=== PATIENT | female | born 1990 | race Caucasian/White ===

== ENCOUNTER 2020-01-29 14:01 | Inpatient (IN) | payer OTHER ==
--- NOTE | 2020-01-30 14:10 | PR ---
[facility] [address] [facility] [place] [address] Signed PP Progress Notes Datetime Report Generated by N: 01/30/2020 14:10 SUBJECTIVE: [id number] Pain: Within normal limits Nausea/Vomiting: Denies Vital Signs: [id number] Vital Signs: Reviewed; Within Normal Limits EXAM: [id number] Abdomen/Uterus: Normal Lochia: Normal Extremities: Normal IMPRESSION/PLAN/PROCEDURES: [id number] Impression: Normal progression Plan: Discharge Procedures: None Progress Notes: Doing well, without complaint. Ready to go home. Signing Physician: Humaira Bartholomew MD Copies: ~ *Electronically Signed* 01/30/20 1410 HUMAIRA BARTHOLOMEW MD PATIENT NAME: CA BAXTER PROGRESS NOTE DATE OF : 90 PHYSICIAN: HUMAIRA BARTHOLOMEW MD RPT #: [id number] REPORT IS CONFIDENTIAL AND NOT TO BE RELEASED WITHOUT AUTHORIZATION
== END 2020-01-30 15:05 | disposition home or self-care (01) | DRG 805 ==
LOC: FBCO 14:01 → FBC 15:33
PROVIDERS: ADMIT General Practice
PROC: 10E0XZZ Delivery of Products of Conception, External Approach (ICD-10-PCS; principal; 2020-01-30)
PROC: 3E0P7VZ Introduction of Hormone into Female Reproductive, Via Natural or Artificial Opening (ICD-10-PCS; 2020-01-30)
PROC: 00HU33Z Insertion of Infusion Device into Spinal Canal, Percutaneous Approach (ICD-10-PCS; 2020-01-30)
PROC: 3E0R3BZ Introduction of Anesthetic Agent into Spinal Canal, Percutaneous Approach (ICD-10-PCS; 2020-01-30)
DX: O36.4XX0 Maternal care for intrauterine death, not applicable or unspecified (principal); O60.13X0 Preterm labor second trimester with preterm delivery third trimester, not applicable or unspecified; Z37.1 Single stillbirth; Z3A.32 32 weeks gestation of pregnancy; O99.344 Other mental disorders complicating childbirth; F41.8 Other specified anxiety disorders; O69.89X0 Labor and delivery complicated by other cord complications, not applicable or unspecified; Z87.440 Personal history of urinary (tract) infections
CPT/HCPCS: 76815; 82565; 82570; 84156; 84450; 84520; 84550; 85025; 86850; 86900; 86901; 99213; J2590; J2795; J7121

== ENCOUNTER 2020-12-16 07:55 | Inpatient (IN) | payer OTHER ==
[~2020-12-16] VITALS: Ht 167.6 cm; Wt 96.2 kg
--- NOTE | 2020-12-16 10:59 | PR ---
[facility] [address] [facility] [place] [address] Signed Progress Notes IP Datetime Report Generated by CPN: 12/16/2020 10:59 PROGRESS NOTES: [id number] Impression: Normal Progression of Labor Procedures: Artificial ROM Plan: Continue Present Management VITAL SIGNS: [id number] Vital Signs: Reviewed; Within Normal Limits EXAM: [id number] Dilatation: 6.0 Effacement: 80 Station: -3 MEMBRANES: [id number] Membranes Status: Ruptured Comments: Comfortable with Epidural. FETUS A: [id number] FHR Baseline: 130 Variability: Moderate 6-25bpm Accelerations: 15X15 Presentation: Vertex FETUS B: [id number] Signing Physician: Humaira Bartholomew MD Copies: ~ *Electronically Signed* 12/16/20 1059 HUMAIRA BARTHOLOMEW MD PATIENT NAME: CA BAXTER PROGRESS NOTE DATE OF : 90 PHYSICIAN: HUMAIRA BARTHOLOMEW MD RPT #: [id number] REPORT IS CONFIDENTIAL AND NOT TO BE RELEASED WITHOUT AUTHORIZATION
--- NOTE | 2020-12-16 12:44 | PR ---
[facility] [address] [facility] [place], [place] [address] Signed Progress Notes IP Datetime Report Generated by CPN: 12/16/2020 12:44 PROGRESS NOTES: [id number] Impression: Normal Progression of Labor Procedures: Artificial ROM Plan: Continue Present Management; Anticipate Vaginal Delivery VITAL SIGNS: [id number] Vital Signs: Reviewed; Within Normal Limits EXAM: [id number] Dilatation: 10.0 Effacement: 100 Station: -1 MEMBRANES: [id number] Membranes Status: Ruptured Comments: Comfortable with Epidural, bkut still slightly high, possibly ROP. Will try laboring on side for short time, then try pushing. FETUS A: [id number] FHR Baseline: 130 Variability: Moderate 6-25bpm Accelerations: 15X15 Presentation: Vertex FETUS B: [id number] Signing Physician: Humaira Bartholomew MD Copies: ~ *Electronically Signed* 12/16/20 1244 HUMAIRA BARTHOLOMEW MD PATIENT NAME: CA BAXTER PROGRESS NOTE DATE OF : 90 PHYSICIAN: HUMAIRA BARTHOLOMEW MD RPT #: [id number] REPORT IS CONFIDENTIAL AND NOT TO BE RELEASED WITHOUT AUTHORIZATION
--- NOTE | 2020-12-16 13:00 | PR ---
[facility] [address] [facility] [place], [place] [address] Signed Progress Notes IP Datetime Report Generated by CPN: 12/16/2020 13:00 PROGRESS NOTES: [id number] Impression: Normal Progression of Labor Procedures: Artificial ROM Plan: Continue Present Management; Anticipate Vaginal Delivery VITAL SIGNS: [id number] Vital Signs: Reviewed; Within Normal Limits EXAM: [id number] Dilatation: 10.0 Effacement: 100 Station: 0 MEMBRANES: [id number] Membranes Status: Ruptured Comments: Fetus coming down, now in correct position. Patient comfortable, pulshing well. FETUS A: [id number] FHR Baseline: 130 Variability: Moderate 6-25bpm Accelerations: 15X15 Presentation: Vertex FETUS B: [id number] Signing Physician: Humaira Bartholomew MD Copies: ~ *Electronically Signed* 12/16/20 1300 HUMAIRA BARTHOLOMEW MD PATIENT NAME: CA BAXTER PROGRESS NOTE DATE OF : 90 PHYSICIAN: HUMAIRA BARTHOLOMEW MD RPT #: [id number] REPORT IS CONFIDENTIAL AND NOT TO BE RELEASED WITHOUT AUTHORIZATION
--- NOTE | 2020-12-16 14:40 | PR ---
[facility] [address] [place], [place] [address] Signed Progress Notes IP Datetime Report Generated by CPN: 12/16/2020 14:40 PROGRESS NOTES: [id number] Impression: Normal Progression of Labor; Non-reassuring Heart Rate Procedures: Artificial ROM Plan: Continue Present Management; Anticipate Vaginal Delivery Informed Consent Obtain: Section Delivery; Risks, Benefits and Alternatives Discussed VITAL SIGNS: H7461677 Vital Signs: Reviewed; Within Normal Limits EXAM: [id number] Dilatation: 10.0 Effacement: 100 Station: 0 MEMBRANES: [id number] Membranes Status: Ruptured Comments: Pushing well, but head with minimal movement and FHR down to 800's-90's for >10 minutes. Do not believe will be able to deliver baby vaginally with non-reassuring FHR tracing for that long, without compromise. Discussed with patient. Explained "Code 4" C/S, risks, benefits. Verbal consent given, patient taken immediately back to OR for Emergency C/S. FETUS A: [id number] FHR Baseline: 130 Variability: Moderate 6-25bpm Accelerations: 15X15 Presentation: Vertex FETUS B: [id number] Signing Physician: Humaira Bartholomew MD Copies: ~ *Electronically Signed* 12/16/20 1441 HUMAIRA BARTHOLOMEW MD PATIENT NAME: CA BAXTER PROGRESS NOTE DATE OF : 90 PHYSICIAN: HUMAIRA BARTHOLOMEW MD RPT #: [id number] REPORT IS CONFIDENTIAL AND NOT TO BE RELEASED WITHOUT AUTHORIZATION
--- NOTE | 2020-12-16 14:42 | NUR ---
12/16/20 Darlyn2 Larisa Sim 1432-PATIENT ARRIVED TO PACU ON RA DROWSY ANSWERING QUESTIONS. EYES OPEN ORIENTED TO PACU. REPORTS PAIN 3/10 LAYING ON RIGHT SIDE PATIENT REPOSITIONED TO BACK TO CHECK FUNDUS WITH RNS ASSISTANCE. 1 ABOVE UMBILICUS LIGHT RUBRA DRAINAGE ON MIGUEL PAD. DRESSING ON ABDOMEN [facility], 1438-WHIT LOCOMOTIVE BOILERMAKER GIVING IV TYLENOL PATIENT HAS EYES CLOSED. PATIENT ASKING ABOUT BABY BOY. 1441-MOHIT LOCOMOTIVE BOILERMAKER AT BEDSIDE REMOVING EPIDURAL
--- NOTE | 2020-12-17 12:22 | OR ---
[facility] [address] [place], [place] [address] Signed DATE OF OPERATION: 12/16/2020 SURGEON: Zay Mustafa MD Patient of Dr. Mustafa. PREOPERATIVE DIAGNOSIS: bradycardia and term labor. POSTOPERATIVE DIAGNOSIS: bradycardia and term labor. PROCEDURE: Emergency primary low transverse segment section, delivery of live male . HEALTH AND SAFETY SPECIALIST: Dr. Clemens. ANESTHESIA: General. ESTIMATED BLOOD LOSS: 1000 mL. COMPLICATIONS: None. DRAINS: Morris to bladder. FINDINGS: Live male infant, Apgars 8 and 9, weight 8 pounds 11 ounces. head wedged tightly in pelvis, with nuchal cord x1. Normal uterus. Normal tubes and ovaries bilateral. DESCRIPTION OF PROCEDURE: The patient was brought into the operating room, placed supine position. After adequate general anesthesia was obtained, she was prepped and draped in usual sterile fashion, and the patient was immediately given general anesthesia with the surgery commencing soon as the patient was anesthetized. A Pfannenstiel skin incision was made with a scalpel. Subcutaneous tissue was dissected with a scalpel and finger dissection and the Electronically Signed By: ZAY MUSTAFA MD 12/17/20 1222 PATIENT NAME: CA BAXTER OPERATIVE REPORT DATE OF : 90 REPORT #: [id number] PHYSICIAN: ZAY MUSTAFA MD PCP: YUSRA RAJAN MD REPORT IS CONFIDENTIAL AND NOT TO BE RELEASED WITHOUT AUTHORIZATION [facility] [address] [place], [place] [address] Signed fascia nicked with the scalpel and extended in transverse fashion using curved scissors. The underlying abdominal musculature was bluntly sharply from the fascia above and below the incision. The abdominal musculature was bluntly along the midline. The peritoneum was grasped with hemostats, elevated, nicked with scissors and then opening extended with finger dissection. The Juan Antonio self-retaining retractor was inserted into the incision and tightened in place. The lower uterine segment was nicked with scalpel and extended transverse fashion using finger dissection. The infant was noted to be in the vertex NELSY presentation with the head wedged tightly in the pelvis. The head was removed and the head delivered from the incision. The cord was noted to be around the neck once, this was removed. The rest of the infant was then easily delivered from the incision. Cord was doubly clamped and cut. The infant passed off the table in good condition awaiting plasticator. Cord gases were collected and sent. The placenta was then manually removed. Uterine cavity explored with lap pad, removed any retained membranes. The incision was noted to have extensions on both sides lateral and caudally. T clamps were used to identify and irvin the end of the extensions and also the ends of the regular incision. The two extensions were each closed with a running locking stitches of 0 Monocryl starting at the lower angle with a finger behind the broad ligament, taking care to avoid any major vessels and to avoid catching any bowel or pelvic structures behind the broad ligament. This was closed up to the original angle on each side. The incision was then closed using running locking stitch of 0 Monocryl and 2nd running stitch of 0 Monocryl was used to imbricate the 1st layer. There was small bleeding on the right angle, this was controlled with ddyumv-xi-oialz stitch of 0 Monocryl, again with finger behind the broad ligament to identify position. The entire pelvis was irrigated, suctioned and examined and noted to have good hemostasis, but there was a broad opening in the anterior peritoneum because of the extension. So after irrigation, the Juan Antonio retractor was removed. Tisseel was sprayed all along the incision to help with further hemostasis and then the bladder flap carefully closed with 3-0 Vicryl in a running stitch. Good hemostasis was noted, so sheet of ACell placed over the lower uterine segment to help with healing and then the anterior wall peritoneum closed using running stitch of 2-0 Vicryl suture. The abdominal musculature was reapproximated using interrupted stitches of 0 Vicryl suture. The abdominal wall incision was irrigated, suctioned, and examined, and any bleeding spots cauterized with the Bovie. Powdered ACell sprinkled over the abdominal musculature and the fascia closed using two running stitch of 0 Vicryl suture meeting in the midline. Subcutaneous tissue was irrigated, suctioned, and examined, and any bleeding spots cauterized with the Bovie. The subcutaneous tissue was irrigated, suctioned, and examined, and any bleeding spots cauterized with Bovie and then closed with interrupted stitches of 3-0 Vicryl suture. The skin was reapproximated using skin clips. The patient tolerated the procedure well, went to recovery room in good condition. Sponge, needle, and instrument count were correct at the end of the procedure. Cord blood gases were sent to the lab. Electronically Signed By: ZAY MUSTAFA MD 12/17/20 1222 PATIENT NAME: CA BAXTER OPERATIVE REPORT DATE OF : 90 REPORT #: [id number] PHYSICIAN: ZAY MUSTAFA MD PCP: YUSRA RAJAN MD REPORT IS CONFIDENTIAL AND NOT TO BE RELEASED WITHOUT AUTHORIZATION [address] [place], [place] [address] Signed MD TRAVON Milligan/ADIEL /[id number] Copies: ~ Electronically Signed By: ZAY MUSTAFA MD 12/17/20 1222 PATIENT NAME: CA BAXTER OPERATIVE REPORT DATE OF : 90 REPORT #: [id number] PHYSICIAN: ZAY MUSTAFA MD PCP: YUSRA RAJAN MD REPORT IS CONFIDENTIAL AND NOT TO BE RELEASED WITHOUT AUTHORIZATION
--- NOTE | 2020-12-17 12:38 | PR ---
[facility] [address] [place] [address] Signed PP Progress Notes Datetime Report Generated by CPN: 12/17/2020 12:38 SUBJECTIVE: [id number] Pain: Within Normal Limits Nausea/Vomiting: Denies Vital Signs: [id number] Vital Signs: Reviewed; Within Normal Limits Notable Details: PP Hgb/Hct = 9.0/27.5 Abdomen/Uterus: Normal Lochia: Normal Extremities: Normal Incision: Normal IMPRESSION/PLAN/PROCEDURES: [id number] Impression: Normal Progression Other Impression: PP Anemia Plan: Discharge Procedures: None Progress Notes: Doing well, without complaint, sitting up in chair without difficulty. Signing Physician: Humaira Bartholomew MD Copies: ~ *Electronically Signed* 12/17/20 1238 HUMAIRA BARTHOLOMEW MD PATIENT NAME: CA BAXTER PROGRESS NOTE DATE OF : 90 PHYSICIAN: HUMAIRA BARTHOLOMEW MD RPT #: [id number] REPORT IS CONFIDENTIAL AND NOT TO BE RELEASED WITHOUT AUTHORIZATION
--- NOTE | 2020-12-18 12:07 | PR ---
[facility] [address] [place] [address] Signed PP Progress Notes Datetime Report Generated by CPN: 12/18/2020 12:07 SUBJECTIVE: [id number] Pain: Within Normal Limits Nausea/Vomiting: Denies Vital Signs: [id number] Vital Signs: Reviewed; Within Normal Limits Notable Details: PP Hgb/Hct = 9.0/27.5 Abdomen/Uterus: Normal Lochia: Normal Extremities: Normal Incision: Normal IMPRESSION/PLAN/PROCEDURES: [id number] Impression: Normal Progression Other Impression: PP Anemia Plan: Discharge Procedures: None Progress Notes: Doing well, ready to go home. Signing Physician: Humaira Bartholomew MD Copies: ~ *Electronically Signed* 12/18/20 1207 HUMAIRA BARTHOLOMEW MD PATIENT NAME: CA BAXTER PROGRESS NOTE DATE OF : 90 PHYSICIAN: HUMAIRA BARTHOLOMEW MD RPT #: [id number] REPORT IS CONFIDENTIAL AND NOT TO BE RELEASED WITHOUT AUTHORIZATION
== END 2020-12-18 14:09 | disposition home or self-care (01) | DRG 788 ==
LOC: FBCO 07:55 → FBC 08:50
PROVIDERS: ADMIT General Practice; ATTEND General Practice
PROC: 10907ZC Drainage of Amniotic Fluid, Therapeutic from Products of Conception, Via Natural or Artificial Opening (ICD-10-PCS; 2020-12-16)
PROC: 00HU33Z Insertion of Infusion Device into Spinal Canal, Percutaneous Approach (ICD-10-PCS; 2020-12-16)
PROC: 3E0R3BZ Introduction of Anesthetic Agent into Spinal Canal, Percutaneous Approach (ICD-10-PCS; 2020-12-16)
PROC: 10D00Z1 Extraction of Products of Conception, Low, Open Approach (ICD-10-PCS; principal; 2020-12-16 13:29)
DX: O24.424 Gestational diabetes mellitus in childbirth, insulin controlled (principal); Z3A.39 39 weeks gestation of pregnancy; Z37.0 Single live birth; O76 Abnormality in fetal heart rate and rhythm complicating labor and delivery; O69.81X0 Labor and delivery complicated by cord around neck, without compression, not applicable or unspecified; O77.0 Labor and delivery complicated by meconium in amniotic fluid; O99.02 Anemia complicating childbirth; D64.9 Anemia, unspecified; O99.344 Other mental disorders complicating childbirth; F41.9 Anxiety disorder, unspecified; F32.9 Major depressive disorder, single episode, unspecified; Z79.899 Other long term (current) drug therapy
CPT/HCPCS: 01961; 36415; 59025; 82803; 85027; 86850; 86900; 86901; 99213; A9270; J0131; J0330; J0690; J1100; J2274; J2370; J2405; J2590; J2704; J2795; J3010; J7042; J7121

== ENCOUNTER 2023-01-18 07:05 | Day surgery (SDC) | payer OTHER ==
--- NOTE | ~2023-01-18 | OR ---
[facility] [place] [facility] [address] [place], [place] [address] Draft DATE OF OPERATION: 01/18/2023 SURGEON: Zay Mustafa MD The patient of Dr. Mustafa. PREOPERATIVE DIAGNOSIS: Missed . POSTOPERATIVE DIAGNOSIS: Missed . PROCEDURE: Suction D and C. ANESTHESIA: General. ESTIMATED BLOOD LOSS: 600 mL. SPECIMEN: Products of conception. DRAINS: None. FINDINGS: Vagina, no blood. Cervix, soft, thick, closed. No active bleeding. Uterus 9 week size, soft, anterior, mobile. Adnexa, no masses palpable. A large amount of tissue removed from the uterine cavity. COMPLICATIONS: None. DESCRIPTION OF PROCEDURE: The patient was brought to the operating room, placed in the supine position. After adequate general anesthesia was obtained, she was placed in dorsal lithotomy position, prepped and draped in usual sterile fashion. Bladder was emptied with straight catheterization. A weighted speculum was placed in the vagina and the anterior lip of PATIENT NAME: CA BAXTER OPERATIVE REPORT DATE OF : 90 REPORT #: [id number] PHYSICIAN: ZAY MUSTAFA MD PCP: ZULEYMA ARGUETA MD REPORT IS CONFIDENTIAL AND NOT TO BE RELEASED WITHOUT AUTHORIZATION [facility] [place] [facility] [address] [place], [place] [address] Draft the cervix was grasped with an Allis clamp. Uterine cavity was sounded to 13 cm and then the cervix was serially dilated. 20 units of Pitocin was put in the IV bag to help with uterine contraction during the procedure. After dilating the cervix, a #10 curved suction tip curette was carefully introduced through the cervix to the fundus and scraped in 360 degree fashion as it was removed during suction. Prior to starting the suction machine was started and tested and the amount of suction adjusted to the normal range and moderate amount of tissue was removed. The curette was then again carefully inserted and again scraped in 360 degree fashion removing more tissue, throughout this there was moderate bleeding. The procedure was continued and small amount of tissue was removed several times after this, so the procedure was continued until the uterus became more firm and no additional tissue was removed and the uterus palpated and noted to be much more firm and normal size. The cervix was observed and again good hemostasis was obtained at this time, so the procedure was stopped. All instruments were removed from the vagina. The patient tolerated the procedure well, went to recovery room in good condition. Sponge and instrument count were correct at the end of the procedure. The uterine curettings were sent to Pathology for identification. MD TRAVON Milligan/ADIEL /[id number] cc: Zuleyma Argueta MD Copies: ~ PATIENT NAME: CA BAXTER OPERATIVE REPORT DATE OF : 90 REPORT #: [id number] PHYSICIAN: ZAY MUSTAFA MD PCP: ZULEYMA ARGUETA MD REPORT IS CONFIDENTIAL AND NOT TO BE RELEASED WITHOUT AUTHORIZATION
[2023-01-18] MEDS ORDERED: VITAMIN D325 MC4 PO (07:23)
[2023-01-18] MEDS ORDERED: PRENATAL VITAM1 EACH PO (07:23)
== END 2023-01-18 10:40 | disposition home or self-care (01) ==
LOC: DS 07:05 → OPS 07:05 → DS 08:45 → OPS 08:45
PROVIDERS: ATTEND General Practice
PROC: 10D17ZZ Extraction of Products of Conception, Retained, Via Natural or Artificial Opening (ICD-10-PCS; principal; 2023-01-18 08:45)
DX: O02.1 Missed abortion (principal)
CPT/HCPCS: J1100; J1885; J2250; J2405; J2590; J2704; J2765; J3010; J7121

== ENCOUNTER 2024-04-23 10:40 | Inpatient (IN) | payer OTHER ==
[~2024-04-23] VITALS: Ht 167.6 cm; Wt 85.7 kg
[~2024-04-23 10:40] MED LIST: PRENATAL VITAM1 EACH PO; VITAMIN D325 MC4 PO
[2024-04-30] MEDS ORDERED: LACTATED RINGER'S 2,000 ML IV PRN (05:00)
[2024-04-30] MEDS ORDERED: LACTATED RINGER'S 1,000 ML IV SCH ×2 (05:00→08:29)
[2024-04-30] MEDS ORDERED: LIDOCAINE 2% VISCOUS 6 ML SYR TOP ONE ×2 (05:30→08:30)
[2024-04-30 06:06] LABS: AMPHETAMINES, URINE NEGATIVE (NEGATIVE); BARBITURATES, URINE NEGATIVE (NEGATIVE); BENZODIAZEPINE, URINE NEGATIVE (NEGATIVE); BUPRENORPHINE, URINE NEGATIVE (NEGATIVE); CANNABINOID, URINE NEGATIVE (NEGATIVE); COCAINE, URINE NEGATIVE (NEGATIVE); ECSTASY, URINE NEGATIVE (NEGATIVE); FENTANYL, URINE NEGATIVE (NEGATIVE); METHADONE, URINE NEGATIVE (NEGATIVE); OPIATES, URINE NEGATIVE (NEGATIVE); OXYCODONE, URINE NEGATIVE (NEGATIVE); PHENCYCLIDINE, URINE NEGATIVE (NEGATIVE)
[2024-04-30 06:32] LABS: HEMATOCRIT 34.5 % (35.0-50.0); HEMOGLOBIN 11.8 g/dL (12.0-18.0); MCH 31.9 (27-36); MCV 93.6 fl (81-99); RBC 3.69 M/ul (4.3-5.7); RDW 14.2 (10.5-15.0)
[2024-04-30] MEDS ORDERED: fentaNYL citrate 100 MCG/2 ML VIAL ONE (06:53)
[2024-04-30] MEDS ORDERED: ePHEDrine sulfate 50 MG/ML AMP ONE (06:53)
[2024-04-30] MEDS ORDERED: PHENYLEPHRINE HCL 10 MG/ML VIAL ONE (06:53)
[2024-04-30] MEDS ORDERED: OXYTOCIN 10 UNITS/ML VIAL ONE (06:53)
[2024-04-30] MEDS ORDERED: MORPHINE SULFATE 1 MG/ML VIAL ONE (06:53)
[2024-04-30] MEDS ORDERED: BUPIVACAINE 0.75% IN DEXTROSE 2 ML AMP ONE (06:53)
[2024-04-30] MEDS ORDERED: DEXAMETHASONE SOD PHOS 4 MG/ML VIAL ONE ×2 (06:53→07:41)
[2024-04-30] MEDS ORDERED: SODIUM CHLORIDE 0.9% 20 ML IV ONE (06:53)
[2024-04-30] MEDS ORDERED: ondansetron HCL 4 MG/2 ML VIAL ONE (06:53)
[2024-04-30] MEDS ORDERED: SOD+POT BICARB/CITRIC ACID 2 EA TABLET.EFF PO SCH (07:00)
[2024-04-30] MEDS ORDERED: CEFAZOLIN SODIUM 2 GM/20 ML SYR IV SCH (07:00)
[2024-04-30] MEDS ORDERED: NALOXONE HCL 0.4 MG SYR IV PRN ×3 (07:15→14:45)
[2024-04-30] MEDS ORDERED: ondansetron HCL 4 MG/2 ML VIAL IV PRN ×2 (07:15→08:30)
[2024-04-30] MEDS ORDERED: fentaNYL citrate 50 MCG/ML SDV IV PRN (07:15)
[2024-04-30] MEDS ORDERED: IBLOOD GLUCOSE TEST STRIP 1 EA TEST VI PRN (07:15)
[2024-04-30] MEDS ORDERED: diphenhydrAMINE HCL 50 MG/ML VIAL IV PRN (07:15)
[2024-04-30 07:16] LABS: ABO O; ANTIBODY SCREEN NEGATIVE; RH POSITIVE
[2024-04-30] MEDS ORDERED: Ropivacaine HCl 0.5% 30 ML VIAL ONE (07:41)
[2024-04-30] MEDS ORDERED: dexmedeTOMIDine HCl 200 MCG/2 ML VIAL ONE (07:41)
[2024-04-30] MEDS ORDERED: LIDOCAINE HCL 2% 5 ML SDV ONE (07:41)
[2024-04-30] MEDS ORDERED: SODIUM CHLORIDE 0.9% 60 ML IV ONE (07:41)
[2024-04-30] MEDS ORDERED: LACTATED RINGER'S 1,000 ML IV ONE (07:56)
[2024-04-30] MEDS ORDERED: ACETAMINOPHEN 1,000 MG/100 ML VIAL ONE (08:15)
[2024-04-30] MEDS ORDERED: KETOROLAC TROMETHAMINE 30 MG/ML VIAL ONE (08:17)
[2024-04-30] MEDS ORDERED: PROCHLORPERAZINE EDISYLATE 10 MG/2 ML VIAL IV PRN (08:30)
[2024-04-30] MEDS ORDERED: METOCLOPRAMIDE HCL 10 MG/2 ML SDV IV PRN (08:30)
[2024-04-30] MEDS ORDERED: OXYTOCIN/0.9 % SODIUM CHLORIDE 500 ML IV SCH (08:30)
[2024-04-30] MEDS ORDERED: bisacodyL 10 MG SUPP PR PRN (08:30)
[2024-04-30] MEDS ORDERED: OXYCODONE HCL 5 MG TAB PO PRN (08:30)
[2024-04-30] MEDS ORDERED: PROMETHAZINE HCL 25 MG SUPP PR PRN (08:30)
[2024-04-30] MEDS ORDERED: PROMETHAZINE HCL 25 MG TAB PO PRN (08:30)
[2024-04-30] MEDS ORDERED: SENNOSIDES/DOCUSATE 1 EA TAB PO SCH (09:00)
[2024-04-30 09:08] VITALS: BP 110/73
--- NOTE | 2024-04-30 09:43 | NUR ---
04/30/24 0943 Alanis Peña 0836-PT ARRIVED BACK TO [facility] ROOM 103 VIA BED ON RA, AWAKE, WITH BABY IN ARMS. PT IS AAO AND ANSWERS QUESTIONS APPROPRIATELY. PT DENIES PAIN OR NAUSEA WHEN ASKED. IV SITE IN R HAND ASSESSED, PATENT, WITH LR W/PIT INFUSING. ANESTHESIA AT BEDSIDE AND ADMINISTERING EPHEDRINE. 0843-BP'S IMPROVED. PT DENIES DIZZINESS, BLURRY VISION, BAILEY, ECT. 0848- AT PTS BEDSIDE AND [facility] RN WORKING W/PT AND BABY FOR . 0855-PT CONT TO WORK WITH [facility] RN ON WITH BABY. REMAINS AT PT BEDSIDE. VSS. IV REMAINS PATENT AND W/O S/SX'D INFILTRATION. 0905-75ML OF CLR YELLOW URINE DRAINED FROM PT'S ESCOBAR CATH. PT CONT TO DENY PAIN OR NAUSEA WHEN ASKED. 0910-REPORT GIVEN TO C RN. INFORMED OF FUNDAL CHECKS WITH INTIAL NOTING OF FUNDUS FIRM BUT MORE TO R SIDE WITH SMALL AMTS OF RUBRA DRAINAGE FROM VAGINAL CANAL, BUT LAST CHECK DOES REVEAL FUNDUS IS STILL FIRM AND MORE MIDLINE, REMAINS AT UMBILLICUS LEVEL. PT IS ABLE TO WIGGLE TOES BUT SPINAL REMAINS AT L2.
[2024-04-30] MEDS ORDERED: ACETAMINOPHEN 500 MG TAB PO SCH ×2 (10:00→16:00)
[2024-04-30] MEDS ORDERED: SIMETHICONE 125 MG TABLET CHEWABLE PO SCH (11:00)
[2024-04-30] MEDS ORDERED: KETOROLAC TROMETHAMINE 30 MG/ML VIAL IV SCH (14:00)
[2024-04-30] MEDS ORDERED: KETOROLAC TROMETHAMINE 30 MG/ML VIAL IV PRN ×2 (14:45)
[2024-04-30] MEDS ORDERED: HYDROmorphone HCL 1 MG/ML SYR IV PRN ×2 (14:45)
[2024-05-01 05:59] LABS: HEMATOCRIT 30.5 % (35.0-50.0); HEMOGLOBIN 10.3 g/dL (12.0-18.0); MCH 31.5 (27-36); MCHC 33.6 g/dl (30-36); MCV 93.9 fl (81-99); RBC 3.25 M/ul (4.3-5.7); RDW 14.3 (10.5-15.0)
[2024-05-01] MEDS ORDERED: IBUPROFEN 800 MG TAB PO SCH (06:00)
--- NOTE | 2024-05-01 08:01 | PR ---
[facility] [address] [facility] [place], [place] [address] Signed PP Progress Notes Datetime Report Generated by CADEN: 05/01/2024 08:01 SUBJECTIVE: [id number] Pain: Within Normal Limits Nausea/Vomiting: Denies Flatus: Yes Vital Signs: [id number] Vital Signs: Reviewed; Within Normal Limits Cardiovascular: Normal Respiratory: Normal Abdomen/Uterus: Abnormal Lochia: Normal Vulva/Perineum: Not Done Breasts: Not Done CVA Tenderness: Not Done Extremities: Normal Incision: Normal Progress: Normal Exam Comments: Abdomen with active BS. Fundus firm, NT @ U-2. H/H 10.3/30.5, WBC 17.1, plat 173k IMPRESSION/PLAN/PROCEDURES: [id number] Impression: Normal Progression Other Plans: ambulate, shower Procedures: None Progress Notes: Doing well. Will increase activity. Probable D/C in the am. Signing Physician: Tiara Greenwood MD Copies: ~ *Electronically Signed* 05/01/24 0801 TIARA GREENWOOD MD PATIENT NAME: CA BAXTER PROGRESS NOTE DATE OF : 90 PHYSICIAN: TIARA GREENWOOD MD RPT #: [id number] REPORT IS CONFIDENTIAL AND NOT TO BE RELEASED WITHOUT AUTHORIZATION
--- NOTE | 2024-05-02 09:18 | PR ---
[facility] [address] [facility] [place], [place] [address] Signed PP Progress Notes Datetime Report Generated by CADEN: 05/02/2024 09:18 SUBJECTIVE: [id number] Pain: Within Normal Limits Nausea/Vomiting: Denies Flatus: Yes Vital Signs: [id number] Vital Signs: Reviewed; Within Normal Limits Cardiovascular: Not Done Respiratory: Not Done Abdomen/Uterus: Abnormal Lochia: Normal Vulva/Perineum: Not Done Breasts: Not Done CVA Tenderness: Not Done Extremities: Normal Incision: Normal Progress: Abnormal Exam Comments: Abdomen with active BS. Fundus firm, NT @ U-2. IMPRESSION/PLAN/PROCEDURES: [id number] Impression: Normal Progression Plan: Remove Ashley; Discharge Other Plans: ambulate, shower Procedures: None Progress Notes: Doing well. She desires D/C. Signing Physician: Tiara Greenwood MD Copies: ~ *Electronically Signed* 05/02/24917 TIARA GREENWOOD MD PATIENT NAME: CA BAXTER PROGRESS NOTE DATE OF : 90 PHYSICIAN: TIARA GREENWOOD MD RPT #: [id number] REPORT IS CONFIDENTIAL AND NOT TO BE RELEASED WITHOUT AUTHORIZATION
--- NOTE | 2024-05-02 22:04 | OR ---
[facility] [address] [place], [place] [address] Signed DATE OF OPERATION: 04/30/2024 SURGEON: Roslyn Greenwood MD SKULL GRINDER: CHARIS Clemens DO PREOPERATIVE DIAGNOSES: 1. Thirty-seven weeks' . 2. Previous section. 3. growth restriction. POSTOPERATIVE DIAGNOSES: 1. Thirty-seven weeks' . 2. Previous section. 3. growth restriction. 4. Delivered. PROCEDURE: Repeat section with low segment transverse uterine incision. ANESTHESIA: Spinal. ESTIMATED BLOOD LOSS: 600 mL. DRAINS: Morris catheter. INDICATIONS AND FINDINGS: The patient is a 33-year-old female, 4, para 1-1-1-1, admitted at 37 weeks for repeat section because of the diagnosis of growth restriction with this . The patient also has insulin-dependent gestational diabetes. She has a history of stillbirth as well. She has been managed with insulin and diet with good control for the most part. At the time of surgery, she was delivered of a little girl via lower segment transverse uterine incision from the ROT position with Apgars of 9 and 9 and weight of 5'8". Uterus, tubes, ovaries, and placenta appeared normal. There were adhesions of the omentum to the anterior peritoneum. Electronically Signed By: ROSLYN GREENWOOD MD 05/02/24 2200 PATIENT NAME: CA BAXTER OPERATIVE REPORT DATE OF : 90 REPORT #: [id number] PHYSICIAN: ROSLYN GREENWOOD MD PCP: YUSRA RAJAN MD REPORT IS CONFIDENTIAL AND NOT TO BE RELEASED WITHOUT AUTHORIZATION [facility] [address] [place], [place] [address] Signed DESCRIPTION OF PROCEDURE: The patient was prepped and draped in the supine position. The previous scar was excised sharply and the incision carried down to the fascia with a knife. The incision was extended laterally. The inferior and superior fascial flaps were then created. The abdomen was entered bluntly and the incision extended bluntly. There were adhesions of the omentum over the superior aspect and these required the hand-held LigaSure device for division. This allowed the adhesions to be completely divided. The Juan Antonio retractor was then placed. The uterine incision was made at the upper aspect of the peritoneal reflection. The baby was delivered with the above findings and handed off to the pediatric staff in attendance. The placenta was removed manually and the uterus explored with a lap tape assuring no remaining fragments. The edges of the incision were identified and grasped with T-clamps. The uterus was closed in two layers using 0-Monocryl. The first layer was a running locking stitch and second was a vertical imbricating stitch. The bipolar device was used on the left angle for further hemostasis. An additional elfnto-fx-nydhs was required near the right portion of the incision again for hemostasis. The abdomen was then irrigated, inspected and bleeding points over the peritoneal edge were controlled with cautery. The retractor was removed. The peritoneum was identified with Anastacia clamps. Luis was sprinkled over the muscles and the peritoneal edges because of the amount of raw area. The peritoneum was closed in a running suture of 3-0 Vicryl. The muscles were brought together with interrupted sutures of 0-Vicryl. Bleeding points were controlled with cautery. This area was irrigated, inspected and good hemostasis was noted. Luis was also sprinkled on this layer to further aid in hemostasis. The fascia was then closed from each angle to the midline with a running suture of 0-Vicryl. The subcu space was irrigated and bleeding points controlled with cautery. The deep space was closed with a running suture of 3-0 Vicryl. The skin was closed with lopez. All sponge and needle counts were correct. She tolerated the procedure well and was taken to the recovery room in good condition. Roslyn Greenwood MD PJW/MODL /[id number] Electronically Signed By: ROSLYN GREENWOOD MD 05/02/24 2204 PATIENT NAME: CA BAXTER OPERATIVE REPORT DATE OF : [birth year] REPORT #: [id number] PHYSICIAN: ROSLYN GREENWOOD MD PCP: YUSRA RAJAN MD REPORT IS CONFIDENTIAL AND NOT TO BE RELEASED WITHOUT AUTHORIZATION [facility] [address] [place] [address] Signed Copies: ~ Electronically Signed By: ROSLYN GREENWOOD MD 05/02/24 2204 PATIENT NAME: CA BAXTER OPERATIVE REPORT DATE OF : [birth year] REPORT #: [id number] PHYSICIAN: ROSLYN GREENWOOD MD PCP: YUSRA RAJAN MD REPORT IS CONFIDENTIAL AND NOT TO BE RELEASED WITHOUT AUTHORIZATION
== END 2024-05-02 13:00 | disposition home or self-care (01) | DRG 788 ==
LOC: FBC 04-30 05:16
PROVIDERS: ADMIT Obstetrics & Gynecology; ATTEND Obstetrics & Gynecology
PROC: 10D00Z1 Extraction of Products of Conception, Low, Open Approach (ICD-10-PCS; principal; 2024-04-30 07:30)
DX: O34.211 Maternal care for low transverse scar from previous cesarean delivery (principal); O36.5930 Maternal care for other known or suspected poor fetal growth, third trimester, not applicable or unspecified; Z3A.37 37 weeks gestation of pregnancy; Z37.0 Single live birth
CPT/HCPCS: 01961; 36415; 76942; 80307; 85027; 86850; 86900; 86901; A9270; J0131; J0690; J1100; J1885; J2001; J2274; J2371; J2405; J2590; J2795; J3010; J7121